=== PATIENT | female | born 1975 | race African-American/Black ===

== ENCOUNTER 2016-11-01 19:59 | Emergency (ER) | payer MEDICAID ==
[~2016-11-01] VITALS: Ht 157.5 cm; Wt 94.9 kg
[~2016-11-01 19:59] MED LIST: IBUP800T23 PO
[2016-11-01 20:11] VITALS: BP 133/96; PULSE 85; RESP 14; TEMP 98.3; O2SAT 96
[2016-11-01] MEDS ORDERED: PROPARACAINE HCL 0.5% OPHT SOLN 15 ML BTL RIGHT EYE ONE (20:30)
--- NOTE | 2016-11-01 20:31 | PD ---
HPI Chief Complaint: Eye Problems/Injury Time Seen by Provider: 20:29 Travel History International Travel<30 days: No Contact w/Intl Traveler<30days: No Traveled to known affect area: No History of Present Illness HPI 41-year-old Yenny female presents the emergency Department with sudden onset of right eye pain, swelling, erythema, with localized temporal pain as well as facial pain into the right upper jaw since this morning. Patient has no fever, chills, or other symptoms. Vision is reported to be normal. She has photophobia and tearing. She has allergies to Betadine and shrimp. PFSH Past Medical History Hx Anticoagulant Therapy: No Blood Disorders: No Cancer: No Cardiovascular Problems: No Chemotherapy: No Cerebrovascular Accident: No Diabetes: No Diminished Hearing: No Hepatitis: No Hiatal Hernia: Yes Respiratory: No Thyroid Disease: No ?: Not : 9 Para: 6 Miscarriage: 1 : 1 Past Surgical History Abdominal Surgery: Yes (AGE 2 MONTHS HERNIA REPAIR) Hysterectomy: No Other Surgery: Yes (RT MID FINGER.) Social History Alcohol Use: No Tobacco Use: No Substance Use: No Allergies-Medications (Allergen,Severity, Reaction): Coded Allergies: Betadine (Verified Allergy, Severe, Rash, 11/01/16) 09/23/11 PATIENT DENIES ALLERGY "DOESN'T KNOW"-- Uncoded Allergies: SHRIMP (Allergy, Severe, RASH, 09/23/11) Reported Meds & Prescriptions Reported Meds & Active Scripts Active No Active Prescriptions or Reported Medications Review of Systems Except as stated in HPI: all other systems reviewed are Neg General / Constitutional: No: Fever Eyes: Positive: Photophobia, Redness, Pain, Tearing, No: Diploplia, Blurred Vision, Drainage, Foreign Body Sensation, Blind Spots, Visual changes, Blindness , Other HENT: Positive: Headaches (in the right gnosticism and maxillary/trigeminal nerve distribution.), Rhinitis, No: Vertigo, Lightheadedness, Sore Throat, Rhinorrhea , Congestion, Nosebleed, Neck Stiffness, Neck Pain, Gingival Bleeding, Dental Difficulties, Ear Discharge, Earache Cardiovascular: No: Chest Pain or Discomfort Respiratory: No: Shortness of Breath Gastrointestinal: No: Abdominal Pain Genitourinary: No: Dysuria Musculoskeletal: No: Pain Skin: No Rash Neurologic: No: Weakness Psychiatric: No: Depression Endocrine: No: Polydipsia Hematologic/Lymphatic: No: Easy Bruising Physical Exam Narrative GENERAL: Patient appears in mild to moderate distress. SKIN: Warm and dry. HEAD: Atraumatic. Normocephalic. EYES: Pupils equal and round. No scleral icterus. No injection or drainage. ENT: No nasal bleeding or discharge. Mucous membranes pink and moist. NECK: Trachea midline. No JVD. CARDIOVASCULAR: Regular rate and rhythm. RESPIRATORY: No accessory muscle use. Clear to auscultation. Breath sounds equal bilaterally. GASTROINTESTINAL: Abdomen soft, non-tender, nondistended. Hepatic and splenic margins not palpable. MUSCULOSKELETAL: Extremities without clubbing, cyanosis, or edema. No obvious deformities. NEUROLOGICAL: Awake and alert. No obvious cranial nerve deficits. Motor grossly within normal limits. Five out of 5 muscle strength in the arms and legs. Normal speech. PSYCHIATRIC: Appropriate mood and affect; insight and judgment normal. Data Data Last Documented VS Vital Signs Date Time Temp Pulse Resp B/P Pulse Ox O2 Delivery O2 Flow Rate FiO2 11/01/16 20:11 98.3 85 14 133/96 96 Orders Proparacaine 0.5% Opth Soln (Alcaine 0.5 (11/01/16 20:30) MDM Medical Decision Making Medical Screen Exam Complete: Yes Emergency Medical Condition: Yes Differential Diagnosis Conjunctivitis. Corneal abrasion. Herpes zoster ophthalmicus. Narrative Course Patient is medically stable at time of exam. Patient is examined with Wood's lamp and fluorescein dye after analgesia with proparacaine drops. Patient is thought to have possible herpes zoster ophthalmicus. Patient is discussed and examined with Dr. Millard. Patient is given her first dose of valacyclovir thousand milligrams by mouth. Patient is given her first dose of Cortisporin ophthalmic drops. This is be continued every 4 hours while awake. Patient be sent home with a prescription for valacyclovir thousand milligrams 3 times a day for 7 days. Patient is to use the Cortisporin Ophthalmic drops every 4 hours while awake. Patient is to follow with sound recordist on Friday to ensure improvement. Patient should return to emergency department immediately if symptoms worsen as discussed. Diagnosis Primary Impression: Viral conjunctivitis of right eye Additional Impression: Herpes zoster ophthalmicus of right eye Patient Instructions: Conjunctivitis (ED), General Instructions Additional Instructions: Patient is given her first dose of valacyclovir thousand milligrams by mouth. Patient is given her first dose of Cortisporin ophthalmic drops. This is be continued every 4 hours while awake. Patient be sent home with a prescription for valacyclovir thousand milligrams 3 times a day for 7 days. Patient is to use the Cortisporin Ophthalmic drops every 4 hours while awake. Patient is to follow with sound recordist on Friday to ensure improvement. Patient should return to emergency department immediately if symptoms worsen as discussed. Follow-up with [facility] [address] [place] [address] Med/Other Pt SpecificInfo: Prescription(s) given Scripts No Active Prescriptions or Reported Meds Disposition: 01 DISCHARGE HOME Condition: Stable Juancarlos Yusuf November 01, 2016 20:31
[2016-11-01] MEDS ORDERED: VALA1TAB PO (21:10)
[2016-11-01] MEDS ORDERED: MAXI5O RIGHT EYE (21:10)
[2016-11-01] MEDS ORDERED: HYDROCORTISONE RIGHT EYE ONE (21:15)
[2016-11-01] MEDS ORDERED: valACYclovir HCL 500 MG TAB PO ONE (21:15)
[2016-11-01] MEDS ORDERED: NEOMYCIN RIGHT EYE ONE (21:15)
[2016-11-01] MEDS ORDERED: POLYMYXIN B RIGHT EYE ONE (21:15)
[2016-11-01] MEDS ORDERED: NEOMYCIN/POLYMYX/DEXAMETH OPHT SUSP 5 ML BTL RIGHT EYE ONE (21:30)
[2016-11-01] MEDS ORDERED: ACETAMINOPHEN 500 MG CPLT PO ONE (21:30)
== END 2016-11-01 21:40 | disposition home or self-care (01) ==
LOC: PHEFT 19:59
DX: B30.9 Viral conjunctivitis, unspecified (principal); B02.30 Zoster ocular disease, unspecified; R51 Headache; R68.84 Jaw pain
CPT/HCPCS: 99283